=== PATIENT | female | born 1975 | race Hispanic/Latino ===

== ENCOUNTER 2023-04-25 06:18 | Day surgery (SDC) | payer OTHER ==
[2023-04-23 15:47] LABS: BASOPHILS # (AUTO) 0.03 K/uL (0.00-0.20); BASOPHILS % (AUTO) 0.3 % (0.0-5.0); EOSINOPHILS # (AUTO) 0.32 K/uL (0.00-0.70); EOSINOPHILS % (AUTO) 3.3 % (0.0-8.0); HEMATOCRIT 31.8 % (36-48); IMMATURE GRANULOCYTE ABSOLUTE 0.02 K/uL (0-1); LYMPHOCYTES # (AUTO) 3.2 K/uL (1.0-4.8); LYMPHOCYTES % (AUTO) 32.9 % (21.0-51.0); MEAN CORPUSCULAR HEMOGLOBIN 28.1 pg (27.0-33.0); MEAN CORPUSCULAR HGB CONC 30.8 g/dL (32.0-36.0); MEAN CORPUSCULAR VOLUME 91.1 fL (79-99); MONOCYTES # (AUTO) 0.6 K/uL (0.1-1.0); MONOCYTES % (AUTO) 5.8 % (3.0-13.0); NEUTROPHILS # (AUTO) 5.7 K/uL (1.8-7.7); NEUTROPHILS % (AUTO) 57.5 % (40.0-77.0); PLATELET COUNT (AUTO) 423 K/uL (130-400); RED BLOOD CELL COUNT(AUTO) 3.49 MIL/uL (4.00-5.50); RED CELL DISTRIBUTION WIDTH 12.9 % (11.0-15.5); WHITE BLOOD COUNT (AUTO) 9.8 K/uL (4.8-10.8)
[2023-04-23 16:00] LABS: CREATININE 0.9 mg/dL (0.5-1.5); INR <= 0.93 (0.85-1.15); POTASSIUM 4.6 mmol/L (3.5-5.1)
[2023-04-23 16:01] LABS: PARTIAL THROMBOPLASTIN TIME 26.1 SEC (26.3-35.5)
[2023-04-23 16:07] LABS: B-TYPE NATRIURETIC PEPTIDE 101 pg/mL (0-100)
[2023-04-23 16:30] VITALS: BP 145/72; PULSE 78; RESP 17
[~2023-04-25] VITALS: Ht 162.6 cm; Wt 70.5 kg
[2023-04-25] VITALS (10 sets, daily range): BP systolic 102–169; BP diastolic 57–85; PULSE 68–77; RESP 14–18
[~2023-04-25 06:18] MED LIST: AEC81 PO; ATOR10 PO; INSU100I68 SQ; INSU100I72 SQ; ISOS30TA92 PO; LISI10TA24 PO; METO-391 PO
[2023-04-25] MEDS: 0.9%NACL 1000ML 1,000 ML IV ONE (07:58)
[2023-04-25] MEDS ORDERED: IOHEXOL 350 MG/ML 100ML INFUS..BTL IV ONE (08:50)
[2023-04-25] MEDS ORDERED: LIDOCAINE HCL 400MG/20ML VIAL ONE (08:50)
[2023-04-25] MEDS ORDERED: HEPARIN 10,000 UNIT/10ML (1,000 UNIT/ML) VIAL ONE (08:51)
[2023-04-25] MEDS ORDERED: NITROGLYCERIN 50MG VIAL ONE (08:51)
[2023-04-25] MEDS ORDERED: NICARDIPINE 25MG INJ IV ONE (08:51)
[2023-04-25] MEDS ORDERED: FENTANYL CITRATE PF 50 MCG/1 ML 2ML VIAL ONE (09:10)
[2023-04-25] MEDS ORDERED: MIDAZOLAM HCL 1 MG/ML 2ML VIAL ONE (09:10)
[2023-04-25] MEDS ORDERED: 0.9%NACL 1000ML 1,000 ML IV SCH (10:30)
[2023-04-25] MEDS: INSULIN HUMULIN R 100 UNIT/ML 3ML ONE (12:25)
== END 2023-04-25 13:35 | disposition home or self-care (01) ==
LOC: DAH 06:18
PROVIDERS: ATTEND Internal Medicine Cardiovascular Disease
DX: I25.118 Atherosclerotic heart disease of native coronary artery with other forms of angina pectoris (principal); I10 Essential (primary) hypertension; E11.9 Type 2 diabetes mellitus without complications; E78.5 Hyperlipidemia, unspecified; Z79.899 Other long term (current) drug therapy; Z79.01 Long term (current) use of anticoagulants; Z79.82 Long term (current) use of aspirin; Z79.4 Long term (current) use of insulin; Z86.16 Personal history of COVID-19; Z90.710 Acquired absence of both cervix and uterus; Z98.891 History of uterine scar from previous surgery; Z82.49 Family history of ischemic heart disease and other diseases of the circulatory system
CPT/HCPCS: 80048; 83880; 85025; 85610; 85730; 36415; 71045; 93005; 93458; 82948 ×2; J1815; C1769; C1887; C1894; A4649; J3010; J3490 ×3; J7030; J1644 ×2; J2250; Q9967; A4215; A4335; A4222; A4221; A4663; A4216; A4606; Q9965 ×2; A4223 ×3; 96360; 96361; 99156; 99157